=== PATIENT | male | born 1990 | race Caucasian/White ===

== ENCOUNTER 2017-04-14 06:12 | Observation (INO) | payer MEDICAID ==
[~2017-04-14] VITALS: Ht 188 cm; Wt 70.0 kg
[2017-04-14 06:50] LABS: HEMATOCRIT 42.9 % (39.2-51.8); HEMOGLOBIN 14.5 g/dL (13.7-18.0); WHITE BLOOD COUNT 10.8 x10^3/uL (3.4-10)
[2017-04-14 07:04] LABS: BLOOD UREA NITROGEN 11 mg/dL (7-18)
[2017-04-14 07:07] LABS: ASPARTATE AMINO TRANSFERASE 15 U/L (15-37)
[2017-04-14 07:16] LABS: ACETAMINOPHEN < 2 mcg/mL (10-30)
[2017-04-14 09:07] LABS: DAU SCREEN DISCLAIMER
[2017-04-14] MEDS ORDERED: PLEASE ENTER ALLERGIES MC SCH ×2 (11:30)
[2017-04-14] MEDS ORDERED: LORazepam 1MG TABLET PO ONE (11:30)
[2017-04-14] MEDS ORDERED: ONDANSETRON ODT 4 MG PO PRN (13:00)
[2017-04-14] MEDS ORDERED: ACETAMINOPHEN 325 MG TABLET PO PRN (13:00)
[2017-04-14] MEDS ORDERED: LORazepam 1MG TABLET ONE (13:08)
[2017-04-14] MEDS ORDERED: CHLORDIAZEPOXIDE 25 MG CAPSULE PO PRN (16:30)
[2017-04-14] MEDS: NICOTINE 14MG/24 HR PATCH.TD24 TD SCH (16:44)
[2017-04-14 20:40] VITALS: BP 116/76
[2017-04-15 08:03] VITALS: BP 117/71
[2017-04-15] MEDS: NICOTINE 14MG/24 HR PATCH.TD24 TD SCH (15:27)
[2017-04-15 19:20] VITALS: BP 115/73
[2017-04-16 08:00] VITALS: BP 111/70
[2017-04-16] MEDS: NICOTINE 14MG/24 HR PATCH.TD24 TD SCH (15:22)
[2017-04-16 20:10] VITALS: BP 144/95
[2017-04-17 07:38] VITALS: BP 117/81
== END 2017-04-17 13:59 | disposition home or self-care (01) ==
LOC: EDBD 06:12 → ED 07:46 → EDIP 11:00 → 3E 13:41
PROVIDERS: ADMIT Hospitalist; ATTEND Hospitalist
DX: R45.851 Suicidal ideations (principal); F10.10 Alcohol abuse, uncomplicated; F12.90 Cannabis use, unspecified, uncomplicated; F17.200 Nicotine dependence, unspecified, uncomplicated
CPT/HCPCS: 36415; 80053; 80307; 80329; 85025; 99285; G0378; G0479; G0480